=== PATIENT | male | born 1995 | race Caucasian/White ===

== ENCOUNTER 2017-07-10 09:12 | Emergency (ER) | payer MEDICAID, SELFPAY ==
[2017-07-10 09:12] VITALS: BP 126/62; PULSE 65; RESP 20; TEMP 36.8; O2SAT 98; BMI 33.9
--- NOTE | 2017-07-10 09:31 | CT_ITS ---
CT abdomen pelvis w con CLINICAL INDICATION: ITS.REASON: right flank pain, urinary retention ORDERING PHYSICIAN: Rich Garsia MD PATIENT AGE: 22 years COMPARISON: 01/19/2014 TECHNIQUE: Axial images obtained with sagittal and coronal reformats. PROCEDURE: Oral Contrast: None IV Contrast: 75 mL's of [id number]. FINDINGS: There is gynecomastia of the right breast. Partially calcified nodule present in the right lower lobe. No focal liver lesion is evident. The gallbladder, spleen, adrenal glands, and pancreas are unremarkable. There is mild dilatation of the right renal collecting system and right ureter. A 2 mm calcific density is present in the urinary bladder just posterior to the indwelling Joseph catheter consistent with a recently passed ureteral stone. There is a 2 mm nonobstructing stone in the mid polar region of the right kidney and a 1 mm stone in the lower pole the right kidney. The left kidney has an unremarkable appearance. Unremarkable appendix. No acute pelvic findings. There is a Joseph catheter present. No acute bony anomalies. IMPRESSION: 1. The findings are consistent with a passed 3 mm right ureteral stone which is in the urinary bladder posterior to the Joseph catheter balloon. 2. Right nephrolithiasis. 3. Gynecomastia
--- NOTE | 2017-07-10 09:37 | HMH.EDUROGM ---
ED Disposition Condition on Discharge: Fair Instructions: DI for Low Back Pain - Critical Care Critical Care Time: No Attestation: On 07/10/17, the high probability of a clinically significant, sudden or life threatening deterioration of the following system(s) required my full and direct attention, intervention and personal management. The time I documented below is in addition to time spent performing reported procedures but includes the following listed in this critical care notation. Medical Decision Making Vital Signs: 07/10/17 09:12 Temperature 98.3 F Temperature Source Oral Pulse Rate [Left Radial] 65 Respiratory Rate 20 Blood Pressure [Right Arm] 126/62 Blood Pressure Mean [Right Arm] 83 Blood Pressure Source [Right Arm] Automatic Cuff Blood Pressure Position [Right Arm] Sitting 02 Sat by Pulse Oximetry 98 Oxygen Delivery Method Room Air Orders (Tests/Meds): ED MEDICATIONS Discontinued Medications Generic Name Dose Route Start Last Admin Trade Name Freq PRN Reason Stop Dose Admin Ketorolac Tromethamine 30 mg 07/10/17 09:23 07/10/17 09:24 Toradol 30mg/Ml Vial IV 07/10/17 09:24 30 mg ONCE ONE Administration Ondansetron HCl 4 mg 07/10/17 09:23 07/10/17 09:24 Zofran 4mg/2ml Vial IV 07/10/17 09:24 4 mg ONCE ONE Administration ORDERS Category Date Time Status CT abdomen pelvis w con Stat Cat Scan 07/10/17 09:31 Ordered Complete Blood Count Auto Diff Stat Lab 07/10/17 09:20 Received Comprehensive Metabolic Panel Stat Lab 07/10/17 09:20 Received Lipase Stat Lab 07/10/17 09:20 Received Urinalysis and Microscopic Stat Lab 07/10/17 09:31 Ordered - Raymond Inquiry Pt receiving controlled substance: No Raymond was queried for this patient: No Male Urogenital HPI - General Chief complaint: Back Pain/Injury Stated complaint: back pain, no ao Mode of Arrival: Ambulatory Limitations: No Limitations Description of Symptoms (Recalled from ER Triage Doc. by RN): RIGHT BACK PAIN THAT IS RADIATING TO RIGHT ABDOMEN, PT STATES HE WAS LYING DOWN WHEN THE PAIN STARTED - History of Present Illness HPI Narrative: 22 years old white male smoker unemployed, Today 830 Am, he was awakened by the sudden onset right flank pain radiating to the penis tip, he felt like he wanted to urinate and he dribbled dark urine. He denies having nausea vomiting diarrhea or urinary frequency. Upon arrival he was unable to urinate so the nursing staff placed a Joseph catheter with no return. He denies having fever or chills. Denies having shortness of breath or chest pain. - Related Data Home Medications Medication Instructions Recorded Confirmed No Known Home Medications [No 07/10/17 07/10/17 Known Home Medications] Allergies Allergy/AdvReac Type Severity Reaction Status Date / Time No Known Allergies Allergy Verified 07/10/17 09:22 [facility] History I have reviewed the patient's past medical history: Yes Medical History: Denies:: Diabetes Mellitus Type 1, Diabetes Mellitus Type 2 - Social History Smoking Status: Current every day smoker Tobacco Type: cigarettes # Packs/Day (cigarettes): 1 Alcohol Intake: never Substance Use Type: marijuana - Psychiatric History Expresses thoughts of harming self/others: None Suicide Plan Description: No Plan ROS Obtained: Yes All systems reviewed & no additional complaints Physical Exam - General General appearance: alert, in no apparent distress - Head Head exam: atraumatic, normocephalic, normal inspection - Eye Eye exam: Present: normal appearance, PERRL, EOMI - ENT ENT exam: Present: normal exam, normal oropharynx, mucous membranes moist, TM's normal bilaterally, normal external ear exam - Neck Neck exam: Present: normal inspection, full ROM, trachea midline. Absent: meningismus, lymphadenopathy - Chest Chest inspection: Present: normal inspection, symmetric chest wall rise. Absent: tenderness - Resp
--- NOTE | 2017-07-10 09:40 | ED_ITS ---
ED Disposition Clinical Impression: Ureteric colic Disposition: Home, Self-Care Condition on Discharge: Fair Instructions: DI for Low Back Pain Additional Instructions: 1- drink plenty of water. 2- urine strain. 3- start abx macrobid 4- follow up with dr pierson for furtther stone and urology work up. 5- pcp for helath screening. 6- observe for fever, vomiting and urine output to return for re evalution. Prescriptions: Nitrofurantoin Monohyd/M-Cryst [Macrobid 100 mg Capsule] 100 mg PO Q12 #14 cap Referrals: Darnell Pierson MD [Staff Physician] - - Critical Care Critical Care Time: No Attestation: On 07/10/17, the high probability of a clinically significant, sudden or life threatening deterioration of the following system(s) required my full and direct attention, intervention and personal management. The time I documented below is in addition to time spent performing reported procedures but includes the following listed in this critical care notation. Medical Decision Making Vital Signs: 07/10/17 09:12 Temperature 98.3 F Temperature Source Oral Pulse Rate [Left Radial] 65 Respiratory Rate 20 Blood Pressure [Right Arm] 126/62 Blood Pressure Mean [Right Arm] 83 Blood Pressure Source [Right Arm] Automatic Cuff Blood Pressure Position [Right Arm] Sitting 02 Sat by Pulse Oximetry 98 Oxygen Delivery Method Room Air - Lab Data Lab Results 07/10/17 09:20: WBC 13.6 H, RBC 5.39, Hgb 17.1, Hct 48.2, MCV 89.4, MCH 31.7 H, MCHC 35.5 H, RDW 12.5, Plt Count 368, MPV 7.7, Neut % (Auto) 67.7, Lymph % (Auto ) 21.1, Sevier % (Auto) 7.4, Eos % (Auto) 3.1, Baso % (Auto) 0.7, Neut # (Auto) 9.2 H, Lymph # (Auto) 2.9, Sevier # (Auto) 1.0, Eos # (Auto) 0.4, Baso # (Auto) 0.1 07/10/17 09:20: Sodium 142, Potassium 3.6, Chloride 106, Carbon Dioxide 27, Anion Gap 12.6, BUN 7, Creatinine 0.86, Estimated Creat Clear 216, Estimated GFR 111, Est GFR ( Amer) 135, Glucose 112 H, Calcium 8.6, Total Bilirubin 0.7, AST 15, ALT 35, Alkaline Phosphatase 85, Total Protein 7.8, Albumin 4.3, Globulin 3.5 H, Albumin/Globulin Ratio 1.2, Lipase 71 L Result diagrams: 07/10/17 09:20 07/10/17 09:20 Orders (Tests/Meds): ED MEDICATIONS Discontinued Medications Generic Name Dose Route Start Last Admin Trade Name Elizabeth PRN Reason Stop Dose Admin Iopamidol 75 ml 07/10/17 10:09 07/10/17 10:10 [id number]; 100ml Vial IV 07/10/17 10:10 75 ml ONCE ONE Administration Ketorolac Tromethamine 30 mg 07/10/17 09:23 07/10/17 09:24 Toradol 30mg/Ml Vial IV 07/10/17 09:24 30 mg ONCE ONE Administration Ondansetron HCl 4 mg 07/10/17 09:23 07/10/17 09:24 Zofran 4mg/2ml Vial IV 07/10/17 09:24 4 mg ONCE ONE Administration Sodium Chloride 10 ml 07/10/17 10:09 07/10/17 10:10 Rad-Saline Flush 10ml Syringe IV 07/10/17 10:10 10 ml ONCE ONE Administration ORDERS Category Date Time Status CT abdomen pelvis w con Stat Cat Scan 07/10/17 09:31 Taken Urinalysis and Microscopic Stat Lab 07/10/17 09:31 Ordered - CT Data CT Scan: Abdomen, Pelvis Time Received: 11:[address] Reviewed: Yes: I discussed the CT results w/the radiologist Preliminary Findings: Abnormal (Bladder stone by Dr. Shaver and nonobstructing right parenchymal stone.)
[2017-07-10 09:43] LABS: Basophils # 0.1 K/mm3 (0-0.2); Basophils % 0.7 % (0.1-2.0); Eosinophils # 0.4 K/mm3 (0.0-0.4); Eosinophils % 3.1 % (0.1-12.0); Hematocrit 48.2 % (42.0-52.0); Hemoglobin 17.1 g/dL (14.1-18.0); Lymphocytes # 2.9 K/mm3 (0.7-4.5); Lymphocytes % 21.1 K/mm3 (10-50); Mean Corpuscular HGB Conc 35.5 g/dL (31.8-35.4); Mean Corpuscular Hemoglobin 31.7 pg (27.0-31.2); Mean Corpuscular Volume 89.4 fl (80-94); Mean Platelet Volume 7.7 fl (7.4-10.4); Monocytes % 7.4 % (1.7-9.3); Neutrophils # 9.2 K/mm3 (1.8-7.8); Neutrophils % 67.7 % (37.0-80.0); Platelet Count 368 K/mm3 (142-424); Red Blood Count 5.39 M/mm3 (4.60-6.20); Red Cell Distribution Width 12.5 % (11.5-17.5); White Blood Count 13.6 K/mm3 (4.8-10.8)
[2017-07-10 09:50] LABS: Alanine Aminotransferase 35 U/L (12-78); Albumin Level 4.3 gm/dL (3.4-5.0); Albumin/Globulin Ratio 1.2 (1.1-1.8); Alkaline Phosphatase 85 U/L (46-116); Anion Gap 12.6 mEq/L (5-15); Aspartate Amino Transferase 15 U/L (15-37); Bilirubin,Total 0.7 mg/dL (0.2-1.0); Blood Urea Nitrogen 7 mg/dL (7-18); Calcium 8.6 mg/dL (8.5-10.1); Carbon Dioxide 27 mmol/L (21.0-32.0); Chloride 106 mmol/L (98-107); Creatinine Clearance Estimated 216 mL/min (0-300); Creatinine,Serum 0.86 mg/dL (0.70-1.30); Estimated Glomerular Filt Rate 111 ml/min (>60); GFR (African American) 135 ML/MIN (>60); Globulin 3.5 gm/dl (1.3-3.2); Glucose 112 mg/dL (74-106); Lipase 71 u/L (73-393); Potassium 3.6 mmoL/L (3.5-5.1); Sodium 142 mmol/L (136-145); Total Protein,Serum 7.8 gm/dL (6.4-8.2)
[2017-07-10 11:06] VITALS: BP 109/69; PULSE 64; RESP 20; TEMP 36.5; O2SAT 100
== END 2017-07-10 11:18 | disposition home or self-care (01) ==
PROVIDERS: Emergency Provider Emergency Medicine; Family Provider Emergency Medicine
DX: N21.0 Calculus in bladder (principal); F17.210 Nicotine dependence, cigarettes, uncomplicated
CPT/HCPCS: 74177; 80053; 83690; 85025; 96374; 96375; 99283; J2405; Q9967

== ENCOUNTER → 2018-12-21 18:03 | Outpatient (CLI) | payer MEDICAID, SELFPAY ==
[2018-12-21 18:06] LABS: Microscopic, Urine URINE MICROSCOPIC (MICROSCOPIC)
[2018-12-21 18:22] LABS: Appearance,Urine CLEAR (Clear); Bilirubin,Urine Negative (Negative); Blood, Urine Negative (Negative); Color,Urine YELLOW (Yellow); Glucose,Urine (UA) Negative (Negative); Ketones,Urine Negative (Negative); Leukocyte Esterase,Urine Negative (Negative); Nitrate,Urine Negative (Negative); Protein,Urine Negative (Negative); Specific Gravity, Urine 1.015 (1.005-1.030); Urobilinogen,Urine 0.2 EU/dl (0.2)
[2018-12-21 18:25] LABS: Basophils # 0.1 K/mm3 (0-0.2); Basophils % 0.7 % (0.1-2.0); Eosinophils # 0.3 K/mm3 (0.0-0.4); Hemoglobin 16.3 g/dL (14.1-18.0); Lymphocytes # 2.9 K/mm3 (0.7-4.5); Lymphocytes % 31.6 % (10-50); Mean Corpuscular Hemoglobin 31.8 pg (27.0-31.2); Mean Corpuscular Volume 93.5 fl (80-94); Mean Platelet Volume 7.1 fl (7.4-10.4); Monocytes # 0.8 K/mm3 (0.1-1.0); Monocytes % 8.1 % (1.7-9.3); Neutrophils # 5.2 K/mm3 (1.8-7.8); Neutrophils % 56.5 % (37.0-80.0); Platelet Count 336 K/mm3 (142-424); Red Blood Count 5.13 M/mm3 (4.60-6.20); Red Cell Distribution Width 13.6 % (11.5-17.5); White Blood Count 9.2 K/mm3 (4.8-10.8)
[2018-12-21 18:40] LABS: Amphetamine/Metha Screen,Urine Negative ng/mL (<1000); Barbiturates Screen,Urine Negative ng/mL (<200); Benzodiazepines Screen,Urine Negative ng/mL (<200); Cannabinoid Screen,Urine Negative ng/mL (<50); Cocaine Screen,Urine Negative ng/mL (<300); Methadone Screen,Urine Negative ng/mL (<300); Opiate Screen,Urine Negative ng/mL (<300); Phencyclidine Screen,Urine Negative ng/mL (<25)
[2018-12-21 18:53] LABS: Alanine Aminotransferase 35 U/L (12-78); Albumin Level 4.1 gm/dL (3.4-5.0); Albumin/Globulin Ratio 1.3 (1.1-1.8); Alkaline Phosphatase 83 U/L (46-116); Anion Gap 11.1 mEq/L (5-15); Aspartate Amino Transferase 12 U/L (15-37); Bilirubin,Total 0.3 mg/dL (0.2-1.0); Blood Urea Nitrogen 7 mg/dL (7-18); Carbon Dioxide 29 mmol/L (21.0-32.0); Chloride 106 mmol/L (98-107); Chol/HDL Ratio 6.4 (1-3.5); Cholesterol 193 mg/dL (140-200); Creatinine,Serum 0.79 mg/dL (0.70-1.30); Estimated Glomerular Filt Rate 122 ml/min (>60); Free T4 (Free Thyroxine) 1.05 ng/dl (0.76-1.46); GFR (African American) 147 ML/MIN (>60); Globulin 3.1 gm/dl (1.3-3.2); Glucose 94 mg/dL (74-106); HDL Cholesterol 30 mg/dL (27-67); LDL Cholesterol 130 mg/dL (0-130); Potassium 4.1 mmoL/L (3.5-5.1); Sodium 142 mmol/L (136-145); Thyroid Stimulating Hormone 1.43 uIU/ml (0.358-3.740); Total Protein,Serum 7.2 gm/dL (6.4-8.2); Triglycerides 164 mg/dL (30-200); VLDL Cholesterol 33 mg/dL (0-40)
[2018-12-21 19:22] LABS: Bacteria,Urine Trace /lpf; Squamous Epithelial Cell,Urine Occasional #/hpf (0-5); WBC,Urine Occasional #/hpf (0-3)
[2018-12-23 10:04] LABS: Vitamin D 25 Hydroxy 10.2 ng/mL (30.0-100.0)
== END ==
PROVIDERS: Visit Provider Emergency Medicine
DX: R53.83 Other fatigue (principal); Z79.899 Other long term (current) drug therapy
CPT/HCPCS: 80053; 80061; 80305; 81001; 82652; 84439; 84443; 85025

== ENCOUNTER 2021-03-10 05:51 | Emergency (ER) | payer MEDICAID, SELFPAY ==
[2021-03-10 06:09] VITALS: BP 113/94; PULSE 73; RESP 18; TEMP 36.8; O2SAT 99; BMI 36.9
[2021-03-10 06:11] VITALS: BMI 36.9
--- NOTE | 2021-03-10 06:12 | CT_ITS ---
PROCEDURE INFORMATION: Exam: CT Abdomen And Pelvis Without Contrast Exam date and time: 03/10/2021 6:12 AM Age: 25 years old Clinical indication: Abdominal pain; Other: With urination; Additional info: Painful hematuria TECHNIQUE: Imaging protocol: Computed tomography of the abdomen and pelvis without contrast. Radiation optimization: All CT scans at this facility use at least one of these dose optimization techniques: automated exposure control; mA and/or kV adjustment per patient size (includes targeted exams where dose is matched to clinical indication); or iterative reconstruction. COMPARISON: ABDPE CT abdomen pelvis w con 07/10/2017 9:49 AM FINDINGS: Liver: Normal. No mass. Gallbladder and bile ducts: Normal. No calcified stones. No ductal dilation. Pancreas: Normal. No ductal dilation. Spleen: Normal. No splenomegaly. Adrenal glands: Normal. No mass. Kidneys and ureters: There is a 3.2 mm calculus in the left ureterovesicular junction. There is mild distal hydroureter and periureteric fat stranding. There is a 2.2 mm nonobstructing calculus in the right kidney. There may be several smaller punctate calcifications in the right kidney. Stomach and bowel: Unremarkable. No obstruction. No mucosal thickening. Appendix: No evidence of appendicitis. Intraperitoneal space: Unremarkable. No free air. No significant fluid collection. Vasculature: Unremarkable. No abdominal aortic aneurysm. Lymph nodes: Unremarkable. No enlarged lymph nodes. Urinary bladder: Urinary bladder is nondistended. Reproductive: Unremarkable as visualized. Bones/joints: Unremarkable. No acute fracture. Soft tissues: Unremarkable. IMPRESSION: 1. Obstructing renal calculus in the left ureterovesicular junction measuring 3.2 mm. There is mild left distal hydroureter and periureteric fat stranding. 2. Nonobstructing renal calculi right kidney.
[2021-03-10 06:20] LABS: Coronavirus 19, PCR Not Detected (NotDetected); Influenza A, PCR Not Detected (NotDetected); Influenza B, PCR Not Detected (NotDetected)
[2021-03-10 06:22] LABS: Basophils # 0.1 K/mm3 (0-0.2); Basophils % 0.9 % (0.1-2.0); Eosinophils # 0.2 K/mm3 (0.0-0.4); Eosinophils % 2.1 % (0.1-12.0); Lymphocytes # 1.5 K/mm3 (0.7-4.5); Lymphocytes % 16.8 % (10-50); Mean Corpuscular HGB Conc 33.9 g/dL (31.8-35.4); Mean Corpuscular Hemoglobin 32.5 pg (27.0-31.2); Mean Corpuscular Volume 95.9 fl (80-94); Mean Platelet Volume 7.7 fl (7.4-10.4); Monocytes # 0.7 K/mm3 (0.1-1.0); Monocytes % 7.7 % (1.7-9.3); Neutrophils # 6.4 K/mm3 (1.8-7.8); Neutrophils % 72.5 % (37.0-80.0); Platelet Count 344 K/mm3 (142-424); Red Blood Count 5.64 M/mm3 (4.60-6.20); Red Cell Distribution Width 12.8 % (11.5-17.5); White Blood Count 8.8 K/mm3 (4.8-10.8)
[2021-03-10 06:23] LABS: Chloride 104 mmol/L (98-107); Potassium 4.2 mmoL/L (3.5-5.1); Sodium 142 mmol/L (136-145)
[2021-03-10 06:25] LABS: Amylase 69 U/L (30-110)
--- NOTE | 2021-03-10 06:25 | HMH.EDFEV ---
ED Disposition Clinical Impression: Renal colic on left side Disposition: Home, Self-Care Condition on Discharge: Good Instructions: Kidney Stones -- Adult Additional Instructions: fluids and use meds and see pcp and urology Prescriptions: levoFLOXacin [Levaquin 500mg tab] 500 mg PO DAILY #7 tab Transmission Status: Pending to [id number] Ketorolac Tromethamine [Toradol 10mg tablet] 10 mg PO Q6HP PRN #10 tab MDD 40mg/day PRN Reason: Moderate To Severe Pain Transmission Status: Pending to [id number] Referrals: Marquise Ortiz MD [Primary Care Provider] - Magen Bai MD [Staff Physician] - - Critical Care Critical Care Time: No Attestation: On 03/10/21, the high probability of a clinically significant, sudden or life threatening deterioration of the following system(s) required my full and direct attention, intervention and personal management. The time I documented below is in addition to time spent performing reported procedures but includes the following listed in this critical care notation. Medical Decision Making - Medical Records Medical records reviewed: Yes: I reviewed the patient's medical records. - Raymond Inquiry Pt receiving controlled substance: No Vital Signs: 03/10/21 06:09 03/10/21 06:31 Temperature 98.2 F Temperature Source Oral Pulse Rate 97 H Pulse Rate [Apical] 73 Respiratory Rate 18 18 Blood Pressure 111/72 Blood Pressure [Right Arm] 113/94 H Blood Pressure Mean 87 Blood Pressure Mean [Right Arm] 100 Blood Pressure Source [Right Arm] Automatic Cuff Blood Pressure Position [Right Arm] Sitting 02 Sat by Pulse Oximetry 99 99 Oxygen Delivery Method Room Air - Lab Data Lab results reviewed: Yes: I reviewed the patient's lab results. Lab Results 03/10/21 06:06: WBC 8.8, RBC 5.64, Hgb 18.3 H, Hct 54.1 H, MCV 95.9 H, MCH 32.5 H, MCHC 33.9, RDW 12.8, Plt Count 344, MPV 7.7, Neut % (Auto) 72.5, Lymph % (Auto) 16.8, Gage % (Auto) 7.7, Eos % (Auto) 2.1, Baso % (Auto) 0.9, Neut # (Auto) 6.4, Lymph # (Auto) 1.5, Gage # (Auto) 0.7, Eos # (Auto) 0.2, Baso # (Auto) 0.1, ESR 2 03/10/21 06:06: Sodium 142, Potassium 4.2, Chloride 104, Carbon Dioxide 26, Anion Gap 16.2 H, BUN 8 L, Creatinine 0.70, Estimated Creat Clear 259, Estimated GFR 137, Est GFR ( Amer) 166, Glucose 126 H, Calcium 9.5, Total Bilirubin 0.4, AST 32, ALT 24, Alkaline Phosphatase 97, C-Reactive Protein 5.4 H, Total Protein 8.2, Albumin 4.7, Globulin 3.5 H, Albumin/Globulin Ratio 1.3, Amylase 69, Lipase 36 03/10/21 06:06: SARS-CoV-2 (PCR) Not detected, Influenza A Untype (PCR) Not detected, Influenza Type B (PCR) Not detected 03/10/21 06:26: Urine Color Yellow, Urine Appearance Clear, Urine pH 6.5, Ur Specific [place] >= 1.030, Urine Protein 2+, Urine Glucose (UA) Negative, Urine Ketones 1+, Urine Blood 3+, Urine Nitrate Positive, Urine Bilirubin 2+ A, Urine Urobilinogen 1.0, Ur Leukocyte Esterase Trace, Urine RBC 5-10, Amorphous Sediment 3+ Result diagrams: 03/10/21 06:06 03/10/21 06:06 Orders (Tests/Meds): ED MEDICATIONS Generic Name Dose Route Start Last Admin Trade Name Freq PRN Reason Stop Dose Admin Tamsulosin HCl 0.4 mg 03/10/21 21:00 Tamsulosin 0.4mg Capsule PO 04/09/21 20:59 HS BRITT Discontinued Medications Generic Name Dose Route Start Last Admin Trade Name Freq PRN Reason Stop Dose Admin Sodium Chloride 1,000 mls @ 999 mls/hr 03/10/21 06:15 03/10/21 06:19 Sod Chlor 0.9% 1000ml Bag IV 03/10/21 07:15 999 mls/hr .Q1H1M BRITT Administration Ketorolac Tromethamine 30 mg 03/10/21 06:14 03/10/21 06:19 Ketorolac 30mg/Ml Vial IV 03/10/21 06:15 30 mg ONCE ONE Administration Ondansetron HCl 4 mg 03/10/21 06:14 03/10/21 06:19 Ondansetron 4mg/2ml Vial IV 03/10/21 06:15 4 mg ONCE ONE Administration ORDERS Category Date Time Status Amylase Stat Lab 03/10/21 06:06 Results C-Reactive Protein Stat Lab 03/10/21 06:0
[2021-03-10 06:26] LABS: Alanine Aminotransferase 24 U/L (12-78); Albumin Level 4.7 g/dl (3.5-5.0); Albumin/Globulin Ratio 1.3 (1.1-1.8); Alkaline Phosphatase 97 U/L (38-126); Anion Gap 16.2 mEq/L (5-15); Aspartate Amino Transferase 32 U/L (17-59); Bilirubin,Total 0.4 mg/dl (0.2-1.3); Blood Urea Nitrogen 8 mg/dl (9-20); Calcium 9.5 mg/dl (8.4-10.2); Carbon Dioxide 26 mmol/L (22.0-30.0); Creatinine Clearance Estimated 259 mL/min (50-200); Estimated Glomerular Filt Rate 137 ml/min (>60); GFR (African American) 166 ML/MIN (>60); Globulin 3.5 g/dL (1.3-3.2); Glucose 126 mg/dl (74-100); Hematocrit 54.1 % (42.0-52.0); Hemoglobin 18.3 g/dL (14.1-18.0); Lipase 36 U/L (23-300); Total Protein,Serum 8.2 g/dl (6.3-8.2)
[2021-03-10 06:31] VITALS: BP 111/72; PULSE 97; RESP 18; O2SAT 99
[2021-03-10 06:32] LABS: C-Reactive Protein 5.4 mg/L (0-4)
[2021-03-10 06:38] LABS: Microscopic, Urine URINE MICROSCOPIC (MICROSCOPIC)
[2021-03-10 06:39] LABS: Appearance,Urine CLEAR (Clear); Blood, Urine 3+ (Negative); Color,Urine YELLOW (Yellow); Glucose,Urine (UA) Negative (Negative); Ketones,Urine 1+ (Negative); Leukocyte Esterase,Urine TRACE (Negative); Nitrate,Urine POSITIVE (Negative); PH,Urine 6.5 (5.0-8.5); Protein,Urine 2+ (Negative); Specific Gravity, Urine >= 1.030 (1.005-1.030)
[2021-03-10 06:43] LABS: Bilirubin,Urine 2+ (Negative)
[2021-03-10 06:54] LABS: Erythrocyte Sedimentation Rate 2 mm/hr (0-15)
[2021-03-10 06:56] LABS: Amorphous Sediment,Urine 3+ /lpf
--- NOTE | 2021-03-10 07:35 | PC.NURSE ---
Notified by Lab that the procalcitonin will be delayed d/t QC. notified
[2021-03-10 07:39] LABS: Procalcitonin 0.092 ng/mL (0.0-2.0)
[2021-03-10 09:16] VITALS: BP 110/60; PULSE 78; RESP 16; TEMP 36.8; O2SAT 98
== END 2021-03-10 09:17 | disposition home or self-care (01) ==
PROVIDERS: Emergency Provider Emergency Medicine; PCP Emergency Medicine
DX: N23 Unspecified renal colic (principal); F17.210 Nicotine dependence, cigarettes, uncomplicated; Z20.822 Contact with and (suspected) exposure to COVID-19
CPT/HCPCS: 74176; 80053; 81001; 82150; 83690; 84145; 85025; 85651; 86140; 87086; 96365; 96375; 99283; C9803; J2405; U0003; U0005

== ENCOUNTER 2021-08-18 11:25 | Emergency (ER) | payer MEDICAID, SELFPAY ==
[2021-08-18 12:30] VITALS: BP 127/70; PULSE 53; RESP 18; TEMP 36.6; O2SAT 98; BMI 31.8
--- NOTE | 2021-08-18 12:55 | HMH.EDUTC ---
[facility] Disposition Clinical Impression: Pain, dental, Dental abscess, Jaw pain Disposition: Home, Self-Care Condition on Discharge: Good Instructions: Tooth Abscess, DI for Tooth Abscess Additional Instructions: Drink plenty of fluids. Take ibuprofen for pain or fever. Take the medications as directed. You have to follow up with a dentist. Follow up with your regular doctor. GO TO THE ER FOR ANY WORSENING SYMPTOMS Prescriptions: Ibuprofen [Ibuprofen 800mg Tablet] 800 mg PO Q8HP PRN #30 tab PRN Reason: Moderate Pain Transmission Status: Received by [facility] Amoxicillin/Potassium Clav [Amox-Clav 875-125 mg Tablet] 1 tab PO BID #20 tab Transmission Status: Received by [id number] Referrals: Marquise Ortiz MD [Primary Care Provider] - Time of Disposition: 13:06 Medical Decision Making - Medical Records Medical records reviewed: No: I reviewed the patient's medical records. - Raymond Inquiry Pt receiving controlled substance: No Vital Signs: 08/18/21 12:30 08/18/21 13:13 Temperature 97.9 F 97.9 F Temperature Source Oral Pulse Rate 53 L Pulse Rate [Left] 53 L Respiratory Rate 18 18 Blood Pressure 127/70 Blood Pressure [Right Arm] 127/70 Blood Pressure Mean [Right Arm] 89 02 Sat by Pulse Oximetry 98 [facility] HPI - General Stated complaint: jaw pain Time Seen by Provider: 08/18/21 12:55 Mode of Arrival: Ambulatory Source of Information: Patient Limitations: No Limitations Description of Symptoms (Recalled from Triage Doc. by RN): pt c/o L upper tooth pain. pt states the pain is causing n/v and difficulty sleeping. HEENT Symptoms (Recalled from RN notes): Yes Resp Symptoms (Recalled from RN notes): No Skin Symptoms (Recalled from RN notes): No MS Symptoms (Recalled from RN notes): Yes Functional Status (Recalled from RN notes): wnl - History of Present Illness Provider Complaint: He c/o dental pain in his right upper jaw for the past several weeks. He has appt with his dentist, but it is not until next week. - Related Data Previous Rx's Medication Instructions Recorded Ketorolac Tromethamine [Toradol 10 mg PO Q6HP PRN #10 tab MDD 03/10/21 10mg tablet] 40mg/day levoFLOXacin [Levaquin 500mg 500 mg PO DAILY #7 tab 03/10/21 tab] Amoxicillin/Potassium Clav 1 tab PO BID #20 tab 08/18/21 [Amox-Clav 875-125 mg Tablet] Ibuprofen [Ibuprofen 800mg 800 mg PO Q8HP PRN #30 tab 08/18/21 Tablet] Allergies Allergy/AdvReac Type Severity Reaction Status Date / Time No Known Allergies Allergy Verified 02/01/19 15:20 - Worker's Comp Is this a Worker's Comp case?: No [facility] History - Hepatitis A Screen Drug use history?: No High risk sexual behaviors?: No History of sexually transmitted infection?: No Currently employed?: No Childcare worker?: No Do you have indoor plumbing?: Yes Do you have electricity?: Yes Attestation statement:: This patient has been screened for Hepatitis A risk factors. I have reviewed the patient's past medical history: Yes Medical History: Denies:: Diabetes Mellitus Type 1, Diabetes Mellitus Type 2 Other Surgeries: Yes: No Previous Surgery Amputation: No Fractures: Yes (RT Hand) - Social History Smoking Status: Current every day smoker Tobacco Type: cigarettes # Packs/Day (cigarettes): 1 Alcohol Intake: current Alcohol Intake Frequency:: a few times a month Substance Use Type: denies use Occupational Status: unemployed Housing: house Household Members: family Family Hx:: Cancer ROS Obtained: Yes All systems reviewed & no additional complaints - Constitutional Constitutional: Reports as per HPI - Eyes Eyes: Denies eye discharge - ENT Ears, Nose, Mouth, and Throat: Reports as per HPI - Cardiovascular Cardiovascular: Denies chest pain - Respiratory Respiratory: Denies chest congestion, Denies cough Physical Exam - General General appearance: alert, in no apparen
[2021-08-18 13:13] VITALS: BP 127/70; PULSE 53; RESP 18; TEMP 36.6
== END 2021-08-18 13:14 | disposition home or self-care (01) ==
PROVIDERS: Emergency Provider Nurse Practitioner Family; PCP Emergency Medicine
DX: K04.7 Periapical abscess without sinus (principal); R68.84 Jaw pain; R11.2 Nausea with vomiting, unspecified; F17.210 Nicotine dependence, cigarettes, uncomplicated; Z79.1 Long term (current) use of non-steroidal anti-inflammatories (NSAID); Z79.899 Other long term (current) drug therapy; Z80.9 Family history of malignant neoplasm, unspecified
CPT/HCPCS: 99213; G0463

== ENCOUNTER 2022-05-14 05:53 | Emergency (ER) | payer MEDICAID, SELFPAY ==
[2022-05-14 06:01] VITALS: BP 116/71; PULSE 93; RESP 18; TEMP 36.3; O2SAT 98; BMI 32.5
--- NOTE | 2022-05-14 06:23 | XR_ITS ---
FINAL REPORT CLINICAL HISTORY: upright please for epigastric pain + vomiting vomiting, cough FINDINGS: SINGLE-VIEW CHEST The heart size is normal. The mediastinum is normal. There is a nodular density in the right lung base, probably nipple shadow. The left lung is clear. There is no pneumothorax. IMPRESSION: No acute cardiopulmonary process. Reviewed, Interpreted and Dictated by Adalgisa Barbosa MD Transcribed by Naomie Garcia Authenticated and . [facility]
[2022-05-14 06:30] LABS: Coronavirus 19, PCR Not Detected (NotDetected); Influenza A, PCR Not Detected (NotDetected); Influenza B, PCR Not Detected (NotDetected)
--- NOTE | 2022-05-14 06:33 | ECG_ITS ---
APPROVED REPORT Exam: Resting ECG HR:84 bpm ECG Measurements Heart Rate 84 AXES WI 161 P 63 QRSd 102 QRS 20 QT 348 T 56 QTc 388 Conclusion SINUS RHYTHM NORMAL ECG UNCONFIRMED REPORT Electronically signed by : Andres Gibbons MD 05/14/2022 16:57:40
[2022-05-14 06:34] LABS: Basophils # 0.1 K/mm3 (0-0.2); Basophils % 0.4 % (0.1-2.0); Eosinophils # 0.3 K/mm3 (0.0-0.4); Eosinophils % 1.5 % (0.1-12.0); Hematocrit 54.2 % (42.0-52.0); Lymphocytes # 1.6 K/mm3 (0.7-4.5); Lymphocytes % 8.1 % (10-50); Mean Corpuscular Hemoglobin 32.5 pg (27.0-31.2); Mean Corpuscular Volume 92.9 fl (80-94); Mean Platelet Volume 8.3 fl (7.4-10.4); Monocytes % 4.8 % (1.7-9.3); Neutrophils # 16.6 K/mm3 (1.8-7.8); Neutrophils % 85.2 % (37.0-80.0); Platelet Count 396 K/mm3 (142-424); Red Blood Count 5.83 M/mm3 (4.60-6.20); Red Cell Distribution Width 13.1 % (11.5-17.5); White Blood Count 19.5 K/mm3 (4.8-10.8)
--- NOTE | 2022-05-14 06:35 | HMH.EDGENADL ---
Discharge Plan Disposition Patient Disposition: Home, Self-Care Condition: Good Prescriptions Prescriptions: New famotidine [Pepcid] 20 mg tablet 20 mg PO DAILY Qty: 30 0RF ondansetron 4 mg tablet,disintegrating 4 mg PO Q8H PRN (Reason: nausea and vomiting) 4 Days Qty: 12 0RF No Action levofloxacin 500 MG tablet 500 mg PO DAILY Qty: 7 0RF ketorolac 10 MG tablet 10 mg PO Q6HP MDD 40mg/day PRN (Reason: Moderate To Severe Pain) Qty: 10 0RF Rx Instructions: Therapy initiated with IV/IM dose ibuprofen 800 MG tablet 800 mg PO Q8HP PRN (Reason: Moderate Pain) Qty: 30 0RF amoxicillin-pot clavulanate 1 EACH tablet 1 tab PO BID Qty: 20 0RF Referrals Follow up/Referrals: Marquise Ortiz MD [Primary Care Provider] - See instructions Activity Restrictions/Add. Instructions Additional Instructions/Restrictions: You were evaluated in the emergency department. 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 Orally hydrate at home. Eat a bland diet until your symptoms have resolved. Follow-up with your primary care provider over the next 3 days. Return to the emergency department for any new or worsening symptoms. Clinical Impressions Clinical Impression: Gastroenteritis Instructions Patient Instructions: DI for Diarrhea and Traveler's Diarrhea -- Adult, DI for Nausea -- Adult Discharge ED Provider: Mary Riddle General Adult HPI General Chief complaint: Nausea/Vomiting/Diarrhea Stated complaint: vomiting Time Seen by Provider: 05/14/22 05:57 History of Present Illness HPI narrative: This patient is a 26-year-old male with no significant past medical history presenting to the emergency department for evaluation with concern for nonbloody, nonbilious emesis since 3:00 this morning. He reports that he is also had epigastric discomfort, chills, and diarrhea. He was well prior to going to bed. He reports that he has not had anything to eat and is only drink some Sprite for the last several hours. He did not take any medications at home prior to arrival. Nothing seems to make his symptoms better or worse. Otherwise, no acute concerns. Related Data Previous Rx's Medication Instructions Recorded ketorolac 10 mg tablet 10 mg PO Q6HP PRN Moderate To 03/10/21 Severe Pain #10 tabs levofloxacin 500 mg tablet 500 mg PO DAILY #7 tabs 03/10/21 amoxicillin 875 mg-potassium 1 tab PO BID #20 tabs 08/18/21 clavulanate 125 mg tablet ibuprofen 800 mg tablet 800 mg PO Q8HP PRN Moderate Pain 08/18/21 #30 tabs famotidine 20 mg tablet (Pepcid) 20 mg PO DAILY #30 tabs 05/14/22 ondansetron 4 mg disintegrating 4 mg PO Q8H PRN nausea and 05/14/22 tablet vomiting 4 days #12 tabs Allergies Allergy/AdvReac Type Severity Reaction Status Date / Time No Known Allergies Allergy Verified 02/01/19 15:20 PFSH PFS Disclaimer: The information contained in this section may have been updated after the patient was seen, as this information can be updated by other users. Social History Smoking Status: Current every day smoker tobacco type: cigarettes packs per day: 1 alcohol intake: current substance use type: denies use current occupational status: unemployed Travel in the last 8 weeks: None household members: family housing: house ROS Obtained: Yes All systems reviewed & no additional complaints except as documented 14 point review of systems obtained and negative except as mentioned in HPI. Physical Exam General General appearance: alert and in no apparent distress Comment: Diaphoretic Head Head exam: atraumatic and normocephalic Eye Eye exam: Present normal appearance, PERRL and EOMI ENT ENT exam: Present normal exam, normal oropharynx and mucous membranes moist Neck Neck exam: Present normal inspection and full ROM Chest Chest inspection: Present normal inspection and symmetric chest
[2022-05-14 06:36] LABS: MANUAL DIFFERENTIAL MANUAL DIFFERENTIAL (MANUAL DIFF)
[2022-05-14 06:37] LABS: Hemoglobin 19.1 g/dL (14.1-18.0)
[2022-05-14 06:38] VITALS: BP 113/55; PULSE 74; RESP 16; O2SAT 98
--- NOTE | 2022-05-14 06:40 | CT_ITS ---
FINAL REPORT TECHNIQUE: Axial images through the chest was performed by computed tomography. Sagittal and coronal reformatted images were obtained and reviewed. This study was performed with techniques to keep radiation doses as low as reasonably achievable (ALARA). Individualized dose reduction techniques using automated exposure control or adjustment of mA and/or kV according to the patient's size were employed. CLINICAL HISTORY: epigastric pain, vomiting, leukocytosis COMPARISON: 03/10/2021 FINDINGS: Abdomen: Lung bases are clear. Liver has an unremarkable CT appearance. The gallbladder is normal. The spleen, pancreas and adrenal glands are unremarkable. There is a tiny nonobstructing right renal stone. There is liquid stool throughout the colon which can be seen with enterocolitis. Pelvis: The appendix is normal. The patient is status post hysterectomy. Pelvic bowel loops are unremarkable. No fluid collection or adenopathy is seen. IMPRESSION: No bowel obstruction. Possible enterocolitis Reviewed, Interpreted and Dictated by Adalgisa Barbosa MD Transcribed by Naomie Garcia Authenticated and . [facility]
[2022-05-14 06:43] LABS: Alanine Aminotransferase 37 U/L (12-78); Albumin Level 4.8 g/dl (3.5-5.0); Albumin/Globulin Ratio 1.5 (1.1-1.8); Alkaline Phosphatase 119 U/L (38-126); Anion Gap 17.5 mEq/L (5-15); Aspartate Amino Transferase 36 U/L (17-59); Bilirubin,Total 0.7 mg/dl (0.2-1.3); Blood Urea Nitrogen 11 mg/dl (9-20); Calcium 9.6 mg/dl (8.4-10.2); Carbon Dioxide 17 mmol/L (22.0-30.0); Chloride 111 mmol/L (98-107); Creatinine Clearance Estimated 192 mL/min (50-200); Estimated Glomerular Filt Rate 102 ml/min (>60); GFR (African American) 123 ML/MIN (>60); Globulin 3.3 g/dL (1.3-3.2); Glucose 148 mg/dl (74-100); Lipase 78 U/L (23-300); Potassium 3.5 mmoL/L (3.5-5.1); Sodium 142 mmol/L (136-145); Total Protein,Serum 8.1 g/dl (6.3-8.2)
--- NOTE | 2022-05-14 07:53 | PC.NURSE ---
DR. BAPTISTE AT BEDSIDE TO DISCUSS POC WITH PT AND FAMILY
[2022-05-14 08:00] VITALS: BP 110/67; PULSE 68; RESP 18; TEMP 36.7; O2SAT 100
[2022-05-14 09:55] LABS: Lymphocytes % 7 % (10-50); Monocytes % 6 % (2-9); Neutrophils % 87 % (42-76); Platelet Estimate Normal; RBC Morphology Normal; Total Cells Counted 100
== END 2022-05-14 08:00 | disposition home or self-care (01) ==
PROVIDERS: Emergency Provider Emergency Medicine; PCP Emergency Medicine
DX: K52.9 Noninfective gastroenteritis and colitis, unspecified (principal); F17.210 Nicotine dependence, cigarettes, uncomplicated; Z20.822 Contact with and (suspected) exposure to COVID-19
CPT/HCPCS: 71045; 74177; 80053; 83690; 85007; 85025; 93005; 96361; 96374; 96375; 99285; C9803; J2405; Q9967; U0003; U0005

== ENCOUNTER 2023-06-09 19:32 | Emergency (ER) | payer MEDICAID, SELFPAY ==
[2023-06-09 19:33] VITALS: BP 151/86; PULSE 78; RESP 19; TEMP 37.1; O2SAT 100; BMI 35.9
--- NOTE | 2023-06-09 20:20 | HMH.EDGENADL ---
Discharge Plan Disposition Patient Disposition: Home, Self-Care Prescriptions Prescriptions: New azithromycin 250 mg tablet See Rx Instructions .ROUTE .COMPLEX Qty: 6 0RF Rx Instructions: For 250 mg dose pack: take 500 mg today (day 1), then 250 mg for 4 days (days 2-5) erythromycin 5 mg/gram (0.5 %) ointment 1 applic ophthalmic (eye) QID 5 Days Qty: 3.5 0RF amoxicillin-pot clavulanate 875-125 mg tablet 1 tab PO BID 5 Days Qty: 10 0RF No Action levofloxacin 500 MG tablet 500 mg PO DAILY Qty: 7 0RF ketorolac 10 MG tablet 10 mg PO Q6HP MDD 40mg/day PRN (Reason: Moderate To Severe Pain) Qty: 10 0RF Rx Instructions: Therapy initiated with IV/IM dose famotidine [Pepcid] 20 mg tablet 20 mg PO DAILY Qty: 30 0RF ondansetron 4 mg tablet,disintegrating 4 mg PO Q8H PRN (Reason: nausea and vomiting) 4 Days Qty: 12 0RF ibuprofen 800 MG tablet 800 mg PO Q8HP PRN (Reason: Moderate Pain) Qty: 30 0RF amoxicillin-pot clavulanate 1 EACH tablet 1 tab PO BID Qty: 20 0RF Referrals Follow up/Referrals: Lamine Snow DO [Primary Care Provider] - See instructions Activity Restrictions/Add. Instructions Additional Instructions/Restrictions: You have a very small eyelid laceration from the cat scratch. No evidence of any involvement of the eye itself. This is very high risk for infection with allowing this to heal by secondary intention please follow-up with an delivery department supervisor to ensure appropriate wound healing. Please take antibiotics prescribed to take orally as well as her topical antibiotic ointment. Return to the ED or to an delivery department supervisor with any spreading redness pus coming from the wound or other concerns. Clinical Impressions Clinical Impression: Cat scratch, Eyelid laceration, right Instructions Patient Instructions: DI for Laceration Repair Discharge ED Provider: Kat Brito General Adult HPI General Chief complaint: Wound/Laceration Stated complaint: AO cat scratch laceration to right eyelid Time Seen by Provider: 06/09/23 20:12 Mode of Arrival: Ambulatory Source of Information: Patient Limitations: No Limitations Description of Symptoms (Recalled from ER Triage Doc. 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 This cat is his mother's and they are almost positive that the vaccines are up to date. The cat was recently at the vet. Unknown Tdap per patient. NAD. No vision changes. History of Present Illness HPI narrative: Patient is a 27-year-old male presenting today with a cat scratch and laceration to the right upper lid of his right eye just prior to arrival. He irrigated extensively at home. Unknown tetanus standpoint when his last vaccination was. No vision changes. Related Data Previous Rx's Medication Instructions Recorded ketorolac 10 mg tablet 10 mg PO Q6HP PRN Moderate To 03/10/21 Severe Pain #10 tabs levofloxacin 500 mg tablet 500 mg PO DAILY #7 tabs 03/10/21 amoxicillin 875 mg-potassium 1 tab PO BID #20 tabs 08/18/21 clavulanate 125 mg tablet ibuprofen 800 mg tablet 800 mg PO Q8HP PRN Moderate Pain 08/18/21 #30 tabs famotidine 20 mg tablet (Pepcid) 20 mg PO DAILY #30 tabs 05/14/22 ondansetron 4 mg disintegrating 4 mg PO Q8H PRN nausea and 05/14/22 tablet vomiting 4 days #12 tabs amoxicillin 875 mg-potassium 1 tab PO BID 5 days #10 tabs 06/09/23 clavulanate 125 mg tablet azithromycin 250 mg tablet See Rx Instructions PO .COMPLEX #6 06/09/23 tabs erythromycin 5 mg/gram (0.5 %) eye 1 applic ophthalmic (eye) QID 5 06/09/23 ointment days #3.5 grams Allergies Allergy/AdvReac Type Severity Reaction Status Date / Time No Known Allergies Allergy Verified 02/01/19 15:20 [facility] Disclaimer: The information contained in this section may have been updated after the patient was seen, as this information can be updated by other users. Social History Smoking Status: Current every day smoker tobacco type: cigarettes packs per day: 1 alcohol intake: current substance use type: denies use current occupational status: unemployed Travel in the last 8 weeks: None household members: family housing: house ROS Obtained: Yes All systems reviewed & no additional complaints except as documented Physical Exam General General appearance: alert Eye Eye exam: Present other (No ocular involvement please see diagram below for a very small laceration explanation) Expanded Eye Exam Both Eyes Image: 1. very small laceration along the lid margin well approximated Respiratory Respiratory exam: Present normal lung sounds bilaterally Cardiovascular Cardiovascular exam: Present regular rate Neurological Exam Neurological exam: Present alert and oriented X3 Medical Decision Making Raymond Inquiry Pt receiving controlled substance: No Vital Signs: 06/09/23 19:33 Temperature 98.8 F Temperature Source Oral Pulse Rate [Left] 78 Respiratory Rate 19 Blood Pressure [Right Arm] 151/86 H Blood Pressure Mean [Right Arm] 107 Blood Pressure Source [Right Arm] Automatic Cuff Blood Pressure Position [Right Arm] Sitting 02 Sat by Pulse Oximetry 100 Oxygen Delivery Method Room Air Orders (Tests/Meds): ED MEDICATIONS Generic Name Dose Route Start Last Admin Trade Name Freq PRN Reason Stop Dose Admin Tetanus/Reduced Diphtheria/Acell Pertussis 0.5 ml 06/09/23 20:18 Tet/Diphth/Pert-Adult 0.5ml Syringe IM 06/09/23 20:19 .ONCE ONE Medical Decision Narrative: 27-year-old male presenting today with a very small laceration on the lid margin of his right eye. This is very high risk for infection it is well-approximated its only few millimeters in length will not close this primarily but allowed to close by secondary intention he is already extensively irrigated this. Will give first dose of azithromycin and Augmentin from a prophylaxis standpoint. Prescription for those 2 medicines have also been sent to his pharmacy. Erythromycin ointment has also been prescribed. Tdap has been updated. He understands this is very high risk from infection standpoint to follow-up with an delivery department supervisor and specifically to make sure he follows up return to the emergency department any worsening symptoms. Also there is no evidence of any ocular involvement his vision is normal there is no superficial injury to this sclera or conjunctival or cornea. No further treatment for the eye itself at the moment. Critical Care Critical Care Time Critical Care Time: No
[2023-06-09] MEDS: AMOXICILLIN/CLAVULANATE POTASSIUM 875/125MG TABLET 1 EACH PO (20:23)
[2023-06-09] MEDS: TET/DIPHTH/PERT-ADULT 0.5ML SYRINGE 0.5 ML IM (20:23)
[2023-06-09] MEDS: AZITHROMYCIN 250MG TABLET 500 MG PO (20:23)
[2023-06-09 20:36] VITALS: BP 141/80; PULSE 82; RESP 17; TEMP 37.1; O2SAT 99
== END 2023-06-09 20:35 | disposition home or self-care (01) ==
PROVIDERS: Emergency Provider Student in an Organized Health Care Education/Training Program; PCP Internal Medicine
DX: S01.111A Laceration without foreign body of right eyelid and periocular area, initial encounter (principal); F17.210 Nicotine dependence, cigarettes, uncomplicated; W55.03XA Scratched by cat, initial encounter
CPT/HCPCS: 90471; 90715; 96372; 99283